=== PATIENT | female | born 1960 | race Caucasian/White ===

== ENCOUNTER 2018-09-03 14:54 | Emergency (ER) | payer MEDICARE, OTHER ==
[2018-09-03 15:37] VITALS: BP 140/65; PULSE 87; RESP 20; TEMP 98.1; O2SAT 98
--- NOTE | 2018-09-03 15:47 | C.PDOC ---
History Of Present Illness 58 y/o female comes in to ED complaining of lower back pain that is radiating down to her left leg since 4 days ago. States she saw her PMD 4 days ago and was given tylenol with codeine but no relief. Patient denies falls, physical injuries, fever, urinary retention, bowel or bladder incontinence, or sensory changes. Time Seen by Provider: 09/03/18 15:30 Chief Complaint (Nursing): Back Pain History Per: Patient History/Exam Limitations: no limitations Onset/Duration Of Symptoms: Days Current Symptoms Are (Timing): Still Present Past Medical History Reviewed: Historical Data, Nursing Documentation, Vital Signs Vital Signs: Last Vital Signs Temp 98.1 F 09/03/18 15:24 Pulse 87 09/03/18 15:24 Resp 20 09/03/18 15:24 BP 140/65 09/03/18 15:24 Pulse Ox 98 09/03/18 15:24 - Medical History PMH: HTN Surgical History: Cholecystectomy Family History: States: No Known Family Hx - Social History Hx Alcohol Use: No Hx Substance Use: No Review Of Systems Except As Marked, All Systems Reviewed And Found Negative. Constitutional: Negative for: Fever Musculoskeletal: Positive for: Back Pain (lower back pain, radiating down to left leg). Negative for: Other (bowel/bladder incontinence; urinary retention) Neurological: Negative for: Weakness, Numbness Physical Exam - Physical Exam Appears: Non-toxic, In Acute Distress (moderate) Skin: Warm, Dry Head: Atraumatic, Normacephalic Eye(s): bilateral: Normal Inspection Oral Mucosa: Moist Neck: Supple Chest: Symmetrical Cardiovascular: Rhythm Regular, No Murmur Respiratory: Normal Breath Sounds, No Rales, No Rhonchi, No Wheezing Gastrointestinal/Abdominal: Soft, No Tenderness Back: Paraspinal Tenderness (left, in lumbar area, no midline) Extremity: Bilateral: Normal Color And Temperature, Normal ROM Neurological/Psych: Oriented x3, Normal Speech, Normal Motor, Normal Sensation Gait: Steady ED Course And Treatment O2 Sat by Pulse Oximetry: 98 (RA) Pulse Ox Interpretation: Normal Progress Note: Patient was given prednisone PO, naproxen PO, and flexeril PO. Disposition - Disposition Referrals: Tawanda Wright [Staff Provider] - Disposition: HOME/ ROUTINE Disposition Time: 16:50 Condition: STABLE Prescriptions: Cyclobenzaprine [Flexeril] 10 mg PO BID PRN #15 tab PRN Reason: Muscle Spasm Naproxen 375 mg PO BID PRN #20 tablet PRN Reason: pain predniSONE [predniSONE Tab] 40 mg PO DAILY #6 tab Instructions: Sciatica (DC) Forms: [employer] (Azeri) Print Language: CHINESE - Clinical Impression Clinical Impression: Sciatica - Scribe Statement The provider has reviewed the documentation as recorded by the Montserratibmelinda Hernadez Provider Attestation: All medical record entries made by the Jose were at my direction and personally dictated by me. I have reviewed the chart and agree that the record accurately reflects my personal performance of the history, physical exam, medical decision making, and the department course for this patient. I have also personally directed, reviewed, and agree with the discharge instructions and disposition.
[2018-09-03] MEDS ORDERED: Naproxen 550 mg Tab PO STA (15:52)
[2018-09-03] MEDS ORDERED: Naproxen 550 mg Tab PO ONE (16:07)
== END 2018-09-03 17:08 | disposition home or self-care (01) ==
LOC: C.ER 14:54
DX: M54.30 Sciatica, unspecified side (principal); I10 Essential (primary) hypertension